=== PATIENT | male | born 1995 | race Two or more races ===

== ENCOUNTER 2017-07-13 16:38 | Emergency (ER) | payer MEDICAID ==
[~2017-07-13] VITALS: Ht 170.2 cm; Wt 117.9 kg
[2017-07-13 16:38] VITALS: BP 153/96
== END 2017-07-13 17:08 | disposition home or self-care (01) ==
LOC: ER 16:40
DX: M25.561 Pain in right knee (principal); F17.200 Nicotine dependence, unspecified, uncomplicated
CPT/HCPCS: A4606; Z7610